=== PATIENT | female | born 1945 | race Caucasian/White ===

== ENCOUNTER 2024-07-18 07:38 | Outpatient (CLI) | payer OTHER ==
[~2024-07-18 07:38] MED LIST: CLONAZEPAM1 MG PO; LIPITOR20 MG PO; LOSARTAN-HCTZ1 EAC2 PO; MELATONIN1 MG PO; SERTRALINE HCL50 MG PO
== END 2024-07-18 07:39 | disposition home or self-care (01) ==
LOC: NUCLEAR 07:38
DX: F03.90 Unspecified dementia, unspecified severity, without behavioral disturbance, psychotic disturbance, mood disturbance, and anxiety (principal); F33.42 Major depressive disorder, recurrent, in full remission
CPT/HCPCS: 78814; A9552